=== PATIENT | female | born 1930 | race Caucasian/White ===

== ENCOUNTER → 2016-10-04 | Outpatient (CLI) | payer MEDICARE, OTHER ==
[~2016-10-04] MED LIST: ACID1TAB7 PO; AMLO2.5T PO; AMLO2.5T2 PO; ASPI-515 PO; CELE200C PO; CHOL500014 PO; CLIN300C93 PO; CYAN1TAB29 PO; DONE10TA7 PO; FERR325T10 PO; FERR325T20 PO; FURO20TA3 PO; GABA100C PO; GABA300C10 PO; GALA8TAB PO; HEPA5000 SQ; HYDR-3144 PO; HYDR1TAB16 PO; LEVO112T6 PO; LIDOCAINE PATCH TD; LISI-167 PO; LISI-170 PO; MELO-184 PO; MEMA1CAP3 PO; MORP15TA39 PO; OXYC10TA32 PO; OXYC1TAB9 PO; POTA10TA31 PO; URSO500T8 PO; VITA1TAB3 PO; potassium PO
== END | disposition home or self-care (01) ==
LOC: WOUND 13:12
PROVIDERS: ATTEND Physician Assistant
DX: L89.152 Pressure ulcer of sacral region, stage 2 (principal); F02.80 Dementia in other diseases classified elsewhere, unspecified severity, without behavioral disturbance, psychotic disturbance, mood disturbance, and anxiety; E03.9 Hypothyroidism, unspecified; F03.90 Unspecified dementia, unspecified severity, without behavioral disturbance, psychotic disturbance, mood disturbance, and anxiety; I10 Essential (primary) hypertension; Z68.25 Body mass index [BMI] 25.0-25.9, adult; Z87.891 Personal history of nicotine dependence; Z72.89 Other problems related to lifestyle; E44.1 Mild protein-calorie malnutrition
CPT/HCPCS: 97597; G0463; WOU0463

== ENCOUNTER → 2016-10-16 | Outpatient (CLI) | payer MEDICARE, OTHER | END | disposition home or self-care (01) | LOC: WOUND 13:00 | PROVIDERS: ATTEND Internal Medicine | DX: L89.152 Pressure ulcer of sacral region, stage 2 (principal); F02.80 Dementia in other diseases classified elsewhere, unspecified severity, without behavioral disturbance, psychotic disturbance, mood disturbance, and anxiety; E03.9 Hypothyroidism, unspecified; E44.1 Mild protein-calorie malnutrition; I10 Essential (primary) hypertension; Z68.25 Body mass index [BMI] 25.0-25.9, adult; Z87.891 Personal history of nicotine dependence; Z72.89 Other problems related to lifestyle | CPT/HCPCS: 97597 ==

== ENCOUNTER → 2016-10-30 | Outpatient (CLI) | payer MEDICARE, OTHER | END | disposition home or self-care (01) | LOC: WOUND 13:30 | PROVIDERS: ATTEND Internal Medicine | DX: L89.152 Pressure ulcer of sacral region, stage 2 (principal); F02.80 Dementia in other diseases classified elsewhere, unspecified severity, without behavioral disturbance, psychotic disturbance, mood disturbance, and anxiety; E03.9 Hypothyroidism, unspecified; I10 Essential (primary) hypertension; Z87.891 Personal history of nicotine dependence; Z72.89 Other problems related to lifestyle | CPT/HCPCS: G0463; WOU0463 ==

== ENCOUNTER → 2016-11-06 | Outpatient (CLI) | payer MEDICARE, OTHER | END | disposition home or self-care (01) | LOC: RAD 07:00 | PROVIDERS: ATTEND Internal Medicine | DX: K74.3 Primary biliary cirrhosis (principal); R16.1 Splenomegaly, not elsewhere classified; K80.20 Calculus of gallbladder without cholecystitis without obstruction; M40.294 Other kyphosis, thoracic region | CPT/HCPCS: 71020; 76700 ==

== ENCOUNTER → 2016-12-04 | Outpatient (CLI) | payer MEDICARE, OTHER ==
[~2016-12-04] MED LIST changes: +MORP-52 PO; -MORP15TA39 PO
== END | disposition home or self-care (01) ==
LOC: WOUND 13:30
PROVIDERS: ATTEND Internal Medicine
DX: L89.323 Pressure ulcer of left buttock, stage 3 (principal); L89.152 Pressure ulcer of sacral region, stage 2; F02.80 Dementia in other diseases classified elsewhere, unspecified severity, without behavioral disturbance, psychotic disturbance, mood disturbance, and anxiety; E03.9 Hypothyroidism, unspecified; I12.9 Hypertensive chronic kidney disease with stage 1 through stage 4 chronic kidney disease, or unspecified chronic kidney disease; N18.3 Chronic kidney disease, stage 3 (moderate); Z87.891 Personal history of nicotine dependence; Z72.89 Other problems related to lifestyle
CPT/HCPCS: 97597; G0463; WOU0463

== ENCOUNTER → 2016-12-12 | Outpatient (CLI) | payer MEDICARE, OTHER ==
[~2016-12-12] MED LIST changes: +OMNIPAQUE 350 MG/ML, 100ML BOTTLE ONE
== END | disposition home or self-care (01) ==
LOC: CFH 11:38
PROVIDERS: ATTEND Family Medicine
DX: K44.9 Diaphragmatic hernia without obstruction or gangrene (principal); R07.9 Chest pain, unspecified; M48.54XA Collapsed vertebra, not elsewhere classified, thoracic region, initial encounter for fracture; M48.56XA Collapsed vertebra, not elsewhere classified, lumbar region, initial encounter for fracture; K74.5 Biliary cirrhosis, unspecified; K76.0 Fatty (change of) liver, not elsewhere classified; R16.1 Splenomegaly, not elsewhere classified
CPT/HCPCS: 71260; 74177; Q9967

== ENCOUNTER → 2016-12-20 | Outpatient (CLI) | payer MEDICARE, OTHER ==
[~2016-12-20] MED LIST changes: -OMNIPAQUE 350 MG/ML, 100ML BOTTLE ONE
== END | disposition home or self-care (01) ==
LOC: WOUND 13:28
PROVIDERS: ATTEND Physician Assistant
DX: L89.152 Pressure ulcer of sacral region, stage 2 (principal); S81.812A Laceration without foreign body, left lower leg, initial encounter; F02.80 Dementia in other diseases classified elsewhere, unspecified severity, without behavioral disturbance, psychotic disturbance, mood disturbance, and anxiety; E03.9 Hypothyroidism, unspecified; I12.9 Hypertensive chronic kidney disease with stage 1 through stage 4 chronic kidney disease, or unspecified chronic kidney disease; N18.9 Chronic kidney disease, unspecified; Z87.891 Personal history of nicotine dependence; Z72.89 Other problems related to lifestyle; X58.XXXD Exposure to other specified factors, subsequent encounter
CPT/HCPCS: 97597; G0463; WOU0463

== ENCOUNTER 2016-12-31 14:54 | Emergency (ER) | payer MEDICARE, OTHER ==
[~2016-12-31] VITALS: Ht 147.3 cm; Wt 45.4 kg
[2016-12-31] MEDS ORDERED: MORPHINE SULFATE 4 MG/ML, 1ML ONE (15:29)
[2016-12-31] MEDS ORDERED: ONDANSETRON 2MG/ML, 2ML ONE (15:29)
[2016-12-31] MEDS ORDERED: MORPHINE SULFATE 4 MG/ML, 1ML IVPush PRN (15:30)
[2016-12-31] MEDS ORDERED: ONDANSETRON 2MG/ML, 2ML IVPush ONE (15:30)
[2016-12-31 16:00] LABS: HEMATOCRIT 25.5 % (34.6-47.8); HEMOGLOBIN 8.3 g/dL (11.7-16.4); WHITE BLOOD COUNT 3.9 x10^3/uL (3.4-10)
[2016-12-31 16:09] LABS: BLOOD UREA NITROGEN 24 mg/dL (7-18)
[2016-12-31 16:54] VITALS: BP 117/63
== END 2016-12-31 16:56 | disposition home or self-care (01) ==
LOC: ED 16:40
DX: S32.028A Other fracture of second lumbar vertebra, initial encounter for closed fracture (principal); S22.088A Other fracture of T11-T12 vertebra, initial encounter for closed fracture; I10 Essential (primary) hypertension; E03.9 Hypothyroidism, unspecified; M47.896 Other spondylosis, lumbar region; M51.36 Other intervertebral disc degeneration, lumbar region; W19.XXXA Unspecified fall, initial encounter; Y93.89 Activity, other specified; Y92.009 Unspecified place in unspecified non-institutional (private) residence as the place of occurrence of the external cause; Y99.9 Unspecified external cause status
CPT/HCPCS: 36415; 72110; 72220; 80048; 82040; 85025; 96374; 96375; 99285; J2405

== ENCOUNTER → 2017-08-12 | Outpatient (CLI) | payer MEDICARE, OTHER ==
[~2017-08-12] MED LIST changes: -CHOL500014 PO; +CHOL500045 PO; +CLIN300C8 PO; -CLIN300C93 PO; -FERR325T10 PO; +FERR325T17 PO; +FERR325T18 PO; -FERR325T20 PO; -HEPA5000 SQ; +HEPA50002 SQ; -HYDR-3144 PO; +HYDR-3245 PO; -MELO-184 PO; +MELO15TA24 PO; -OXYC10TA32 PO; +OXYC10TA47 PO
== END ==
LOC: CVU 14:24
PROVIDERS: ATTEND Family Medicine
DX: M25.551 Pain in right hip (principal); R60.9 Edema, unspecified
CPT/HCPCS: 93922

== ENCOUNTER 2017-09-16 09:28 | Emergency (ER) | payer MEDICARE, OTHER ==
[~2017-09-16] VITALS: Ht 149.9 cm; Wt 47.6 kg
[2017-09-16] MEDS ORDERED: OXYC1TAB7 PO (11:24)
[2017-09-16] MEDS ORDERED: CHOL2000 PO (11:28)
[2017-09-16] MEDS ORDERED: CALC400T5 PO (11:28)
[2017-09-16] MEDS ORDERED: MORPHINE SULFATE 4 MG/ML, 1ML ONE (12:25)
[2017-09-16] MEDS ORDERED: ONDANSETRON ODT 4 MG ONE (12:25)
[2017-09-16] MEDS ORDERED: ONDANSETRON ODT 4 MG PO ONE (12:30)
[2017-09-16] MEDS ORDERED: MORPHINE SULFATE 4 MG/ML, 1ML IVPush PRN (12:30)
[2017-09-16 14:11] VITALS: BP 112/63
== END 2017-09-16 15:11 | disposition home or self-care (01) ==
LOC: ED 14:59
DX: S20.00XA Contusion of breast, unspecified breast, initial encounter (principal); G89.29 Other chronic pain; M54.9 Dorsalgia, unspecified; I10 Essential (primary) hypertension; M81.0 Age-related osteoporosis without current pathological fracture; E03.9 Hypothyroidism, unspecified; F03.90 Unspecified dementia, unspecified severity, without behavioral disturbance, psychotic disturbance, mood disturbance, and anxiety; Z79.891 Long term (current) use of opiate analgesic; W19.XXXA Unspecified fall, initial encounter; Y93.89 Activity, other specified; Y99.8 Other external cause status; Y92.009 Unspecified place in unspecified non-institutional (private) residence as the place of occurrence of the external cause
CPT/HCPCS: 71046; 71120; 96374; 99284; Q0162

== ENCOUNTER → 2017-10-31 | Outpatient (CLI) | payer MEDICARE, OTHER ==
[~2017-10-31] MED LIST changes: +CALC400T5 PO; +CHOL2000 PO; +OXYC-432 PO; +OXYC1TAB7 PO; -OXYC1TAB9 PO; +SULF1TAB24 PO
== END | disposition home or self-care (01) ==
LOC: CFH 14:02
PROVIDERS: ATTEND Family Medicine
DX: Z13.820 Encounter for screening for osteoporosis (principal); M81.0 Age-related osteoporosis without current pathological fracture
CPT/HCPCS: 77080

== ENCOUNTER 2018-03-05 16:29 | Inpatient (IN) | payer MEDICARE, OTHER ==
[~2018-03-05] VITALS: Ht 147.3 cm; Wt 49.3 kg
[~2018-03-05 16:29] MED LIST changes: -AMLO2.5T PO; +AMLO2.5T3 PO
[2018-03-05] MEDS ORDERED: SODIUM CHLORIDE FLUSH 10ML SYR IVF ONE (19:00)
[2018-03-05 19:25] LABS: BASOPHILS # (AUTO) 0.03 x10^3/uL (0-0.1); BASOPHILS % (AUTO) 1 % (0-1); EOSINOPHILS # (AUTO) 0.26 x10^3/uL (0-0.4); EOSINOPHILS % (AUTO) 7 % (1-7); LYMPHOCYTES # (AUTO) 0.73 x10^3/uL (1-3.4); LYMPHOCYTES % (AUTO) 19 % (22-44); MD NO; MEAN CORPUSCULAR HEMOGLOBIN 34.3 pg (27.0-34.8); MEAN CORPUSCULAR HGB CONC 33.3 g/dL (32.4-35.8); MEAN CORPUSCULAR VOLUME 103.1 fL (80-100); MEAN PLATELET VOLUME 7.5 fL (7.4-10.4); MONOCYTES # (AUTO) 0.35 x10^3/uL (0.2-0.8); MONOCYTES % (AUTO) 9 % (2-9); NEUTROPHILS # (AUTO) 2.47 x10^3/uL (1.8-6.8); NEUTROPHILS % (AUTO) 64 % (42-75); PLATELET COUNT 116 x10^3/uL (130-400); RED BLOOD COUNT 3.15 x10^6/uL (3.82-5.3); RED CELL DISTRIBUTION WIDTH 16.9 % (9.6-15.2)
[2018-03-05 19:34] LABS: INTERNATIONAL NORMALIZED RATIO 1.11 (0.93-1.1); PROTHROMBIN TIME 11.4 Seconds (9.6-11.5)
[2018-03-05 19:36] LABS: ALBUMIN 3.2 g/dL (3.4-5.0); ANION GAP 5 mmol/L (5-15); CHLORIDE 113 mmol/L (98-107); CREATININE 1.46 mg/dL (0.55-1.02)
[2018-03-05] MEDS ORDERED: OXYcodone/APAP 10/325MG TABLET ONE (19:40)
[2018-03-05] MEDS ORDERED: OXYcodone/APAP 10/325MG TABLET PO ONE (20:00)
[2018-03-05] MEDS ORDERED: DOCUSATE 100 MG CAPSULE PO PRN (21:30)
[2018-03-05] MEDS ORDERED: ACETAMINOPHEN 325 MG TABLET PO PRN (21:30)
[2018-03-05] MEDS ORDERED: hydrALAzine 20 MG/ML, 1ML IVPush PRN (21:30)
[2018-03-05] MEDS ORDERED: ONDANSETRON ODT 4 MG PO PRN (21:30)
[2018-03-05] MEDS: DIPHENHYDRAMINE 25 MG CAPSULE PO PRN (21:34)
[2018-03-05] MEDS: HEPARIN 5,000 UNITS/ML, 1ML SQ SCH (21:34)
[2018-03-05 21:35] VITALS: BP 183/93
[2018-03-05] MEDS ORDERED: SODIUM CHLORIDE 0.9% 1,000 ML IV SCH (22:30)
[2018-03-06 03:50] VITALS: BP 133/71
[2018-03-06 05:08] LABS: ANION GAP 9 mmol/L (5-15); CALCIUM 8.2 mg/dL (8.5-10.1); CHLORIDE 117 mmol/L (98-107)
[2018-03-06 05:11] LABS: CREATININE 1.28 mg/dL (0.55-1.02)
[2018-03-06] MEDS: HEPARIN 5,000 UNITS/ML, 1ML SQ SCH ×3 (05:25→20:15)
[2018-03-06 08:22] VITALS: BP 129/71
[2018-03-06] MEDS: OXYcodone/APAP 5/325MG TABLET PO PRN ×2 (08:58→15:31)
[2018-03-06] MEDS: DONEPEZIL 10 MG TABLET PO SCH (08:59)
[2018-03-06] MEDS: CALCIUM CARBONATE 500 MG TAB.CHEW PO SCH ×2 (08:59→20:15)
[2018-03-06] MEDS: CHOLECALCIFEROL 5,000u TAB PO SCH (08:59)
[2018-03-06] MEDS: LISINOPRIL 20 MG TABLET PO SCH (08:59)
[2018-03-06] MEDS: LEVOTHYROXINE 88 MCG TABLET PO SCH (08:59)
[2018-03-06] MEDS: FUROSEMIDE 20 MG TABLET PO SCH (08:59)
[2018-03-06 11:45] LABS: FREE T4 (FREE THYROXINE) 3.19 ng/dL (0.76-1.46)
[2018-03-06 15:40] VITALS: BP 149/88
[2018-03-06] MEDS ORDERED: GABA-826 PO ×2 (16:37→16:45)
[2018-03-06 19:03] VITALS: BP 158/84
[2018-03-06] MEDS: GABAPENTIN 100 MG CAPSULE PO SCH (20:15)
[2018-03-06] MEDS: DIPHENHYDRAMINE 25 MG CAPSULE PO PRN (20:15)
[2018-03-07 01:03] VITALS: BP 155/75
[2018-03-07] MEDS: HEPARIN 5,000 UNITS/ML, 1ML SQ SCH ×3 (05:32→21:37)
[2018-03-07] MEDS: OXYcodone/APAP 5/325MG TABLET PO PRN ×2 (05:32→21:37)
[2018-03-07 08:30] VITALS: BP 136/78
[2018-03-07] MEDS: DONEPEZIL 10 MG TABLET PO SCH (10:12)
[2018-03-07] MEDS: CALCIUM CARBONATE 500 MG TAB.CHEW PO SCH ×2 (10:13→21:37)
[2018-03-07] MEDS: CHOLECALCIFEROL 5,000u TAB PO SCH (10:13)
[2018-03-07] MEDS: LEVOTHYROXINE 88 MCG TABLET PO SCH (10:13)
[2018-03-07] MEDS: GABAPENTIN 100 MG CAPSULE PO SCH ×3 (10:13→21:37)
[2018-03-07] MEDS: FUROSEMIDE 20 MG TABLET PO SCH (10:13)
[2018-03-07] MEDS: LISINOPRIL 20 MG TABLET PO SCH (10:13)
[2018-03-07 13:21] VITALS: BP 134/65
[2018-03-07 13:59] LABS: MICROSCOPIC AUTO
[2018-03-07 14:10] LABS: CULTURE INDICATED? YES
[2018-03-07 19:15] VITALS: BP 158/84
[2018-03-08 01:07] VITALS: BP 160/81
[2018-03-08] MEDS: LEVOTHYROXINE 88 MCG TABLET PO SCH (05:27)
[2018-03-08] MEDS: HEPARIN 5,000 UNITS/ML, 1ML SQ SCH ×3 (05:27→21:26)
[2018-03-08 06:46] VITALS: BP 165/78
[2018-03-08] MEDS: CEFTRIAXONE PMX 1GM/50ML 50 ML IV SCH (07:29)
[2018-03-08] MEDS: LISINOPRIL 20 MG TABLET PO SCH (07:42)
[2018-03-08] MEDS: DONEPEZIL 10 MG TABLET PO SCH (07:42)
[2018-03-08] MEDS: CHOLECALCIFEROL 5,000u TAB PO SCH (07:42)
[2018-03-08] MEDS: GABAPENTIN 100 MG CAPSULE PO SCH ×3 (07:42→21:26)
[2018-03-08] MEDS: FUROSEMIDE 20 MG TABLET PO SCH (07:42)
[2018-03-08] MEDS: CALCIUM CARBONATE 500 MG TAB.CHEW PO SCH ×2 (07:43→21:00)
[2018-03-08] MEDS ORDERED: CEFD300C37 PO (08:14)
[2018-03-08 12:50] VITALS: BP 116/78
[2018-03-08 19:22] VITALS: BP 155/83
[2018-03-08] MEDS: OXYcodone/APAP 5/325MG TABLET PO PRN (21:35)
[2018-03-08] MEDS: DIPHENHYDRAMINE 25 MG CAPSULE PO PRN (21:35)
[2018-03-09 01:35] VITALS: BP 159/83
[2018-03-09] MEDS: HEPARIN 5,000 UNITS/ML, 1ML SQ SCH ×2 (05:00→13:42)
[2018-03-09 06:35] VITALS: BP 150/82
[2018-03-09] MEDS: CEFTRIAXONE PMX 1GM/50ML 50 ML IV SCH (07:26)
[2018-03-09] MEDS: DONEPEZIL 10 MG TABLET PO SCH (07:26)
[2018-03-09] MEDS: LISINOPRIL 20 MG TABLET PO SCH (07:27)
[2018-03-09] MEDS: GABAPENTIN 100 MG CAPSULE PO SCH ×2 (07:27→16:38)
[2018-03-09] MEDS: CHOLECALCIFEROL 5,000u TAB PO SCH (07:27)
[2018-03-09] MEDS: CALCIUM CARBONATE 500 MG TAB.CHEW PO SCH (07:27)
[2018-03-09] MEDS: FUROSEMIDE 20 MG TABLET PO SCH (07:27)
[2018-03-09] MEDS: LEVOTHYROXINE 88 MCG TABLET PO SCH (07:29)
[2018-03-09] MEDS: OXYcodone/APAP 5/325MG TABLET PO PRN ×2 (07:45→16:37)
[2018-03-09 12:10] VITALS: BP 133/81
== END 2018-03-09 18:09 | DRG 542 ==
LOC: ED 17:23 → EDIP 20:20 → 3NE 20:58
PROVIDERS: ADMIT Hospitalist; ATTEND Hospitalist
DX: M80.071A Age-related osteoporosis with current pathological fracture, right ankle and foot, initial encounter for fracture (principal); N17.0 Acute kidney failure with tubular necrosis; E44.0 Moderate protein-calorie malnutrition; N39.0 Urinary tract infection, site not specified; W18.30XA Fall on same level, unspecified, initial encounter; N18.9 Chronic kidney disease, unspecified; I12.9 Hypertensive chronic kidney disease with stage 1 through stage 4 chronic kidney disease, or unspecified chronic kidney disease; D69.6 Thrombocytopenia, unspecified; D69.2 Other nonthrombocytopenic purpura; D53.9 Nutritional anemia, unspecified; E03.9 Hypothyroidism, unspecified; F03.90 Unspecified dementia, unspecified severity, without behavioral disturbance, psychotic disturbance, mood disturbance, and anxiety; F43.9 Reaction to severe stress, unspecified; G89.11 Acute pain due to trauma; G89.29 Other chronic pain; Z66 Do not resuscitate; Z96.641 Presence of right artificial hip joint; W18.39XA Other fall on same level, initial encounter; Y93.89 Activity, other specified; Y92.89 Other specified places as the place of occurrence of the external cause; Y99.8 Other external cause status; Z88.8 Allergy status to other drugs, medicaments and biological substances; B96.20 Unspecified Escherichia coli [E. coli] as the cause of diseases classified elsewhere; Z68.22 Body mass index [BMI] 22.0-22.9, adult; Z98.49 Cataract extraction status, unspecified eye; Z98.1 Arthrodesis status
CPT/HCPCS: 36415; 80048; 81001; 82040; 82306; 82607; 82728; 83540; 83550; 84439; 84443; 84466; 84481; 85025; 85610; 87077; 87086; 87186; 99285; G0378; J0696; J1644; J0360; J7030; Q0163

== ENCOUNTER 2018-10-27 09:48 | Inpatient (IN) | payer MEDICARE, OTHER ==
[~2018-10-27] VITALS: Ht 124.5 cm; Wt 52.9 kg
[~2018-10-27 09:48] MED LIST changes: -AMLO2.5T3 PO; +AMLO2.5T5 PO; +AMOX1TAB64 PO; +CEFD300C37 PO; +GABA-826 PO; +LEVO50TA PO; +METR500T PO; +PANT40TA5 PO
[2018-10-27] MEDS ORDERED: PANTOPRAZOLE 80 MG in SODIUM CHLORIDE 0.9% 100 ML IV SCH ×2 (09:55→14:30)
[2018-10-27] MEDS ORDERED: PANTOPRAZOLE 80 MG in SODIUM CHLORIDE 0.9% 50 ML IVPB ONE (09:55)
--- NOTE | 2018-10-27 09:55 | NUR ---
PATIENT ARRIVES FROM HOME WITH MAURILIO. SHE IS ON NON REBREATHER MASK 15 LITERS AND SAT'S 98% BUT WHEN MOVED OR REMOVED BRIEFLY HER SAT'S DROP QUICKLY AND SHE IS SLOW TO RETURN. SHE HAS RALES/COARSE LUNG SOUNDS. SHE IS SCREAMING IN PAIN. [facility] GAVE 50 MCG FENTANYL AND 4 MG ZOFRAN. SHE WAS HOME AND WITH DAUGHTER WHEN SHE BEGAN HAVING COFFEE GROUND EMESIS AND DIARREA. SHE IS COVERED IN IT HEAD TO TOE. GOT HELP AND GOT HER CLOTHES OFF, GOWNED, CLEANED UP, AND ON NEW SHEETS. PATIENT IN BED, RAILS UP. SHE HAS BEEN HOSPITALIZED FOR GI BLEED THIS PAST MAY ICU. SHE IS NOT ON BLOOD THINNERS.
[2018-10-27] MEDS ORDERED: SODIUM CHLORIDE 0.9% 1,000ML IVBOLUS ONE (10:00)
[2018-10-27] MEDS ORDERED: ACETAMINOPHEN 325 MG TABLET PO ONE (10:00)
--- NOTE | 2018-10-27 10:16 | NUR ---
REPORTED TO VANESSA, RN AND PATIENT TAKEN TO ROOM 37
--- NOTE | 2018-10-27 10:26 | NUR ---
[facility] BEDSIDE HAND-OFF REPORT RECEIVED FROM CUCA ISLAS. PATIENT MOVED TO ROOM 37. ASSUMING CARE OF PATIENT. PATIENT ON CONTINUOUS SPO2, CARDIAC MONITORS. AUTOMATIC BP CUFF APPLIED AND SET TO Q30 MINS. VS STABLE AT THIS TIME.
[2018-10-27 10:28] LABS: BASOPHILS # (AUTO) 0.07 x10^3/uL (0-0.1); BASOPHILS % (AUTO) 1 % (0-1); EOSINOPHILS # (AUTO) 0.04 x10^3/uL (0-0.4); EOSINOPHILS % (AUTO) 1 % (1-7); LYMPHOCYTES # (AUTO) 0.29 x10^3/uL (1-3.4); LYMPHOCYTES % (AUTO) 4 % (22-44); MD NO; MEAN CORPUSCULAR HEMOGLOBIN 34.4 pg (27.0-34.8); MEAN CORPUSCULAR HGB CONC 32.7 g/dL (32.4-35.8); MEAN CORPUSCULAR VOLUME 105.3 fL (80-100); MEAN PLATELET VOLUME 7.5 fL (7.4-10.4); MONOCYTES # (AUTO) 0.41 x10^3/uL (0.2-0.8); MONOCYTES % (AUTO) 6 % (2-9); NEUTROPHILS # (AUTO) 5.83 x10^3/uL (1.8-6.8); NEUTROPHILS % (AUTO) 88 % (42-75); PLATELET COUNT 112 x10^3/uL (130-400); RED BLOOD COUNT 3.31 x10^6/uL (3.82-5.3); RED CELL DISTRIBUTION WIDTH 15.4 % (9.6-15.2)
[2018-10-27] MEDS ORDERED: PLEASE ENTER HEIGHT AND WEIGHT MC SCH (10:30)
[2018-10-27 10:38] LABS: INTERNATIONAL NORMALIZED RATIO 1.08 (0.93-1.1); PROTHROMBIN TIME 11.3 Seconds (9.6-11.5)
[2018-10-27 10:40] LABS: ALANINE AMINOTRANSFERASE 40 U/L (12-78); ALBUMIN 3.1 g/dL (3.4-5.0); ANION GAP 10 mmol/L (5-15); CHLORIDE 109 mmol/L (98-107); CREATININE 1.86 mg/dL (0.55-1.02)
[2018-10-27 10:42] LABS: ALKALINE PHOSPHATASE 430 U/L (45-117); BILIRUBIN,TOTAL 0.7 mg/dL (0.2-1.0); TOTAL PROTEIN 8.1 g/dL (6.4-8.2)
[2018-10-27] MEDS ORDERED: ACETAMINOPHEN 325 MG TABLET ONE (11:00)
[2018-10-27] MEDS ORDERED: CEFTRIAXONE PMX 1GM/50ML 50 ML ONE (11:50)
[2018-10-27] MEDS ORDERED: CEFTRIAXONE PMX 1GM/50ML 50 ML IV ONE (12:00)
--- NOTE | 2018-10-27 12:27 | NUR ---
HAIR HELTON COLLECTED AND WALKED TO LAB.
[2018-10-27] MEDS ORDERED: PANT40TA5 PO (12:30)
[2018-10-27] MEDS ORDERED: GABA300C10 PO (12:32)
[2018-10-27] MEDS ORDERED: FERR-46 PO (12:33)
[2018-10-27 13:01] LABS: MICROSCOPIC INDICATED
[2018-10-27 13:06] LABS: CULTURE INDICATED? YES
[2018-10-27] MEDS ORDERED: VANCOMYCIN PER PHARMACY MC ONE (13:30)
[2018-10-27] MEDS ORDERED: VANCOMYCIN PMX 1GM/200ML 200 ML IV ONE (13:30)
[2018-10-27] MEDS ORDERED: AZITHROMYCIN 500 MG in SODIUM CHLORIDE 0.9% 250 ML IV ONE (13:30)
[2018-10-27] MEDS ORDERED: ONDANSETRON 2MG/ML, 2ML IVPush PRN (14:30)
[2018-10-27] MEDS ORDERED: CEFTRIAXONE PMX 1GM/50ML 50 ML IV SCH (14:30)
[2018-10-27] MEDS ORDERED: ACETAMINOPHEN 325 MG TABLET PO PRN (14:30)
[2018-10-27] MEDS ORDERED: SODIUM CHLORIDE 0.9% 500 ML IV SCH (14:30)
[2018-10-27] MEDS ORDERED: LABETALOL 5MG/ML, 20ML IVPush PRN (14:30)
[2018-10-27] MEDS ORDERED: HEPARIN 5,000 UNITS/ML, 1ML SQ SCH (14:30)
[2018-10-27] MEDS ORDERED: OCTREOTIDE 500 MCG in SODIUM CHLORIDE 0.9% 249 ML IV SCH (14:30)
[2018-10-27] MEDS: CEFTRIAXONE PMX 1GM/50ML 50 ML IV SCH (14:35)
[2018-10-27] MEDS ORDERED: HEPARIN 5,000 UNITS/ML, 1ML ONE (15:19)
--- NOTE | 2018-10-27 15:54 | NUR ---
LAB AND IMPROVEMENT LEADER AT BEDSIDE. PT UPDATED ON POC. IV ANTIBIOTICS INFUSING.
[2018-10-27] MEDS: DOXYCYCLINE 100 MG in DEXTROSE 5% 250 ML IV SCH (16:52)
[2018-10-27] MEDS ORDERED: GABAPENTIN 300 MG CAPSULE ONE (17:16)
[2018-10-27] MEDS: GABAPENTIN 300 MG CAPSULE PO SCH ×2 (17:18→21:52)
--- NOTE | 2018-10-27 18:51 | NUR ---
Pt report from chuckie. This rn to assume care. Sleeping comfortably on hospital bed. Call light wtihin reach. Iv infusing appropriately.
[2018-10-27] MEDS: SODIUM CHLORIDE 0.9% 1,000 ML IV SCH (19:27)
[2018-10-27] MEDS: DONEPEZIL 10 MG TABLET PO SCH (21:52)
[2018-10-27] MEDS: HYDROcodone/APAP 5/325 TABLET PO PRN (21:52)
[2018-10-27] MEDS: CALCIUM CARBONATE 500 MG TAB.CHEW PO SCH (21:53)
[2018-10-27] MEDS: PANTOPRAZOLE 80 MG in SODIUM CHLORIDE 0.9% 100 ML IV SCH (21:54)
[2018-10-27 22:21] VITALS: BP 144/77
[2018-10-27] MEDS: morphine SULFATE 10 MG/ML, 1ML IVPush PRN (23:38)
[2018-10-28 03:38] VITALS: BP 138/72
[2018-10-28] MEDS: morphine SULFATE 10 MG/ML, 1ML IVPush PRN (03:54)
[2018-10-28] MEDS: SODIUM CHLORIDE 0.9% 1,000 ML IV SCH ×2 (03:54→23:52)
[2018-10-28] MEDS: HYDROcodone/APAP 5/325 TABLET PO PRN (05:14)
[2018-10-28] MEDS: DOXYCYCLINE 100 MG in DEXTROSE 5% 250 ML IV SCH ×2 (05:14→17:51)
[2018-10-28] MEDS: OCTREOTIDE 500 MCG in SODIUM CHLORIDE 0.9% 249 ML IV SCH ×2 (05:43→23:53)
[2018-10-28] MEDS ORDERED: LEVOTHYROXINE 50 MCG TABLET PO SCH (06:00)
[2018-10-28 06:15] LABS: CHLORIDE 115 mmol/L (98-107)
[2018-10-28 06:24] LABS: ALANINE AMINOTRANSFERASE 28 U/L (12-78); ALBUMIN 2.2 g/dL (3.4-5.0); ALKALINE PHOSPHATASE 277 U/L (45-117); ANION GAP 9 mmol/L (5-15); BILIRUBIN,TOTAL 0.8 mg/dL (0.2-1.0); CALCIUM 7.7 mg/dL (8.5-10.1); CREATININE 1.36 mg/dL (0.55-1.02); TOTAL PROTEIN 6.1 g/dL (6.4-8.2)
[2018-10-28 06:34] LABS: MEAN CORPUSCULAR HEMOGLOBIN 34.1 pg (27.0-34.8); MEAN CORPUSCULAR HGB CONC 32.4 g/dL (32.4-35.8); MEAN CORPUSCULAR VOLUME 105.3 fL (80-100); MEAN PLATELET VOLUME 8.1 fL (7.4-10.4); PLATELET COUNT 72 x10^3/uL (130-400); RED BLOOD COUNT 2.82 x10^6/uL (3.82-5.3); RED CELL DISTRIBUTION WIDTH 15.6 % (9.6-15.2)
[2018-10-28 06:36] LABS: BASOPHILS # (AUTO) 0.01 x10^3/uL (0-0.1); BASOPHILS % (AUTO) 0 % (0-1); EOSINOPHILS # (AUTO) 0.08 x10^3/uL (0-0.4); EOSINOPHILS % (AUTO) 1 % (1-7); LYMPHOCYTES # (AUTO) 0.78 x10^3/uL (1-3.4); LYMPHOCYTES % (AUTO) 13 % (22-44); MD SCAN; MONOCYTES # (AUTO) 0.51 x10^3/uL (0.2-0.8); MONOCYTES % (AUTO) 9 % (2-9); NEUTROPHILS # (AUTO) 4.56 x10^3/uL (1.8-6.8); NEUTROPHILS % (AUTO) 77 % (42-75)
[2018-10-28] MEDS: FERROUS SULFATE 325 MG TABLET PO SCH (07:54)
[2018-10-28] MEDS: CALCIUM CARBONATE 500 MG TAB.CHEW PO SCH ×2 (07:54→21:07)
[2018-10-28] MEDS: GABAPENTIN 300 MG CAPSULE PO SCH ×3 (07:54→21:06)
[2018-10-28] MEDS: PANTOPRAZOLE 80 MG in SODIUM CHLORIDE 0.9% 100 ML IV SCH ×2 (07:57→17:51)
[2018-10-28 08:00] VITALS: BP 130/68
[2018-10-28] MEDS: LIDODERM 5% PATCH TD PRN (09:20)
[2018-10-28 10:23] LABS: FREE T4 (FREE THYROXINE) 2.65 ng/dL (0.76-1.46)
[2018-10-28] MEDS ORDERED: POTA10TA11 PO (11:49)
[2018-10-28] MEDS: OXYcodone/APAP 5/325MG TABLET PO PRN ×2 (12:18→21:06)
[2018-10-28] MEDS ORDERED: FENTANYL PF 100 MCG/2ML IV PRN (13:00)
[2018-10-28] MEDS ORDERED: ONDANSETRON 2MG/ML, 2ML IV PRN (13:00)
[2018-10-28] MEDS ORDERED: PROPOFOL 10 MG/ML, 20ML ONE (13:50)
[2018-10-28 15:02] VITALS: BP 111/63
[2018-10-28] MEDS: CEFTRIAXONE PMX 1GM/50ML 50 ML IV SCH (15:13)
[2018-10-28] MEDS: CYCLOBENZAPRINE 10 MG TABLET PO PRN (15:14)
[2018-10-28] MEDS: DONEPEZIL 10 MG TABLET PO SCH (21:06)
[2018-10-28 21:25] VITALS: BP 139/76
[2018-10-29] MEDS: PANTOPRAZOLE 80 MG in SODIUM CHLORIDE 0.9% 100 ML IV SCH (03:39)
[2018-10-29 03:59] VITALS: BP 137/76
[2018-10-29] MEDS: LEVOTHYROXINE 25 MCG TABLET PO SCH (05:54)
[2018-10-29] MEDS: OXYcodone/APAP 5/325MG TABLET PO PRN ×3 (05:54→20:14)
[2018-10-29] MEDS: DOXYCYCLINE 100 MG in DEXTROSE 5% 250 ML IV SCH ×2 (05:54→17:45)
[2018-10-29 06:51] LABS: CHLORIDE 116 mmol/L (98-107)
[2018-10-29 07:00] LABS: ALANINE AMINOTRANSFERASE 26 U/L (12-78); ALBUMIN 2.3 g/dL (3.4-5.0); ALKALINE PHOSPHATASE 267 U/L (45-117); ANION GAP 7 mmol/L (5-15); BASOPHILS # (AUTO) 0.01 x10^3/uL (0-0.1); BASOPHILS % (AUTO) 0 % (0-1); BILIRUBIN,TOTAL 0.5 mg/dL (0.2-1.0); CALCIUM 7.6 mg/dL (8.5-10.1); CREATININE 1.25 mg/dL (0.55-1.02); EOSINOPHILS % (AUTO) 4 % (1-7); LYMPHOCYTES # (AUTO) 0.56 x10^3/uL (1-3.4); LYMPHOCYTES % (AUTO) 11 % (22-44); MD SCAN; MEAN CORPUSCULAR HEMOGLOBIN 34.6 pg (27.0-34.8); MEAN CORPUSCULAR HGB CONC 32.7 g/dL (32.4-35.8); MEAN CORPUSCULAR VOLUME 105.8 fL (80-100); MEAN PLATELET VOLUME 7.5 fL (7.4-10.4); MONOCYTES # (AUTO) 0.41 x10^3/uL (0.2-0.8); MONOCYTES % (AUTO) 8 % (2-9); NEUTROPHILS # (AUTO) 4.13 x10^3/uL (1.8-6.8); NEUTROPHILS % (AUTO) 78 % (42-75); PLATELET COUNT 96 x10^3/uL (130-400); RED BLOOD COUNT 2.81 x10^6/uL (3.82-5.3); RED CELL DISTRIBUTION WIDTH 15.5 % (9.6-15.2); TOTAL PROTEIN 6.4 g/dL (6.4-8.2)
[2018-10-29 07:22] VITALS: BP 132/71
[2018-10-29] MEDS: CALCIUM CARBONATE 500 MG TAB.CHEW PO SCH ×2 (09:18→20:07)
[2018-10-29] MEDS: FERROUS SULFATE 325 MG TABLET PO SCH (09:18)
[2018-10-29] MEDS: GABAPENTIN 300 MG CAPSULE PO SCH ×3 (09:18→20:07)
[2018-10-29] MEDS: PANTOPROZOLE 40MG TABLET PO SCH (11:06)
[2018-10-29] MEDS: LIDODERM 5% PATCH TD PRN (11:41)
[2018-10-29 13:44] VITALS: BP 125/75
[2018-10-29] MEDS: GUAIFENESIN 200 MG TABLET PO SCH ×2 (15:40→20:07)
[2018-10-29] MEDS: CEFTRIAXONE PMX 1GM/50ML 50 ML IV SCH (15:40)
[2018-10-29] MEDS: DONEPEZIL 10 MG TABLET PO SCH (20:07)
[2018-10-29 21:09] VITALS: BP 120/76
[2018-10-30 03:55] VITALS: BP 135/81
[2018-10-30] MEDS: OXYcodone/APAP 5/325MG TABLET PO PRN ×3 (04:32→21:09)
[2018-10-30] MEDS: GUAIFENESIN 200 MG TABLET PO SCH ×4 (05:39→21:06)
[2018-10-30] MEDS: LEVOTHYROXINE 25 MCG TABLET PO SCH (05:39)
[2018-10-30] MEDS: PANTOPROZOLE 40MG TABLET PO SCH (05:39)
[2018-10-30] MEDS: DOXYCYCLINE 100 MG in DEXTROSE 5% 250 ML IV SCH (05:40)
[2018-10-30 06:20] LABS: MEAN CORPUSCULAR HEMOGLOBIN 35.1 pg (27.0-34.8); MEAN CORPUSCULAR HGB CONC 32.9 g/dL (32.4-35.8); MEAN CORPUSCULAR VOLUME 106.7 fL (80-100); MEAN PLATELET VOLUME 7.9 fL (7.4-10.4); PLATELET COUNT 95 x10^3/uL (130-400); RED BLOOD COUNT 2.77 x10^6/uL (3.82-5.3); RED CELL DISTRIBUTION WIDTH 15.2 % (9.6-15.2)
[2018-10-30 06:23] LABS: ALBUMIN 2.1 g/dL (3.4-5.0); ANION GAP 5 mmol/L (5-15); CALCIUM 7.7 mg/dL (8.5-10.1); CHLORIDE 117 mmol/L (98-107)
[2018-10-30 06:27] LABS: ALANINE AMINOTRANSFERASE 23 U/L (12-78); ALKALINE PHOSPHATASE 254 U/L (45-117); BILIRUBIN,TOTAL 0.6 mg/dL (0.2-1.0); TOTAL PROTEIN 6.3 g/dL (6.4-8.2)
[2018-10-30 06:40] LABS: BASOPHILS # (AUTO) 0.01 x10^3/uL (0-0.1); BASOPHILS % (AUTO) 0 % (0-1); EOSINOPHILS # (AUTO) 0.22 x10^3/uL (0-0.4); EOSINOPHILS % (AUTO) 5 % (1-7); LYMPHOCYTES % (AUTO) 15 % (22-44); MD SCAN; MONOCYTES # (AUTO) 0.37 x10^3/uL (0.2-0.8); MONOCYTES % (AUTO) 9 % (2-9); NEUTROPHILS # (AUTO) 2.95 x10^3/uL (1.8-6.8); NEUTROPHILS % (AUTO) 71 % (42-75)
[2018-10-30 07:15] VITALS: BP 112/67
[2018-10-30] MEDS: DOXYCYCLINE 100MG TABLET PO SCH ×2 (09:37→21:06)
[2018-10-30] MEDS: FERROUS SULFATE 325 MG TABLET PO SCH (09:37)
[2018-10-30] MEDS: CALCIUM CARBONATE 500 MG TAB.CHEW PO SCH ×2 (09:37→21:05)
[2018-10-30] MEDS: GABAPENTIN 300 MG CAPSULE PO SCH ×3 (09:37→21:05)
[2018-10-30] MEDS: AMOXICILLIN/CLAV 875-125MG TABLET PO SCH ×2 (09:37→21:06)
[2018-10-30 12:41] VITALS: BP 143/82
[2018-10-30 17:20] LABS: CLOSTRIDIUM DIFFICILE ANTIGEN NEGATIVE; CLOSTRIDIUM DIFFICILE TOXIN NEGATIVE (Negative)
[2018-10-30 19:26] VITALS: BP 130/66
[2018-10-30] MEDS: DONEPEZIL 10 MG TABLET PO SCH (21:06)
[2018-10-31 00:22] VITALS: BP 130/75
[2018-10-31] MEDS: PANTOPROZOLE 40MG TABLET PO SCH (05:13)
[2018-10-31] MEDS: GUAIFENESIN 200 MG TABLET PO SCH ×4 (05:13→20:14)
[2018-10-31] MEDS: LEVOTHYROXINE 25 MCG TABLET PO SCH (05:13)
[2018-10-31 05:57] LABS: BASOPHILS # (AUTO) 0.01 x10^3/uL (0-0.1); BASOPHILS % (AUTO) 0 % (0-1); EOSINOPHILS # (AUTO) 0.25 x10^3/uL (0-0.4); EOSINOPHILS % (AUTO) 6 % (1-7); LYMPHOCYTES # (AUTO) 0.57 x10^3/uL (1-3.4); LYMPHOCYTES % (AUTO) 14 % (22-44); MD NO; MEAN CORPUSCULAR HEMOGLOBIN 34.6 pg (27.0-34.8); MEAN CORPUSCULAR HGB CONC 32.5 g/dL (32.4-35.8); MEAN CORPUSCULAR VOLUME 106.6 fL (80-100); MEAN PLATELET VOLUME 7.7 fL (7.4-10.4); MONOCYTES # (AUTO) 0.41 x10^3/uL (0.2-0.8); MONOCYTES % (AUTO) 10 % (2-9); NEUTROPHILS # (AUTO) 2.97 x10^3/uL (1.8-6.8); NEUTROPHILS % (AUTO) 71 % (42-75); PLATELET COUNT 101 x10^3/uL (130-400); RED BLOOD COUNT 3.06 x10^6/uL (3.82-5.3); RED CELL DISTRIBUTION WIDTH 14.6 % (9.6-15.2)
[2018-10-31 06:04] LABS: ALANINE AMINOTRANSFERASE 24 U/L (12-78); ALBUMIN 2.3 g/dL (3.4-5.0); ANION GAP 4 mmol/L (5-15); CHLORIDE 118 mmol/L (98-107); CREATININE 1.02 mg/dL (0.55-1.02)
[2018-10-31 06:06] LABS: ALKALINE PHOSPHATASE 327 U/L (45-117); BILIRUBIN,TOTAL 0.5 mg/dL (0.2-1.0); TOTAL PROTEIN 6.5 g/dL (6.4-8.2)
[2018-10-31] MEDS: HEPARIN 5,000 UNITS/ML, 1ML SQ SCH ×3 (08:01→23:21)
[2018-10-31] MEDS: DOXYCYCLINE 100MG TABLET PO SCH ×2 (08:01→20:14)
[2018-10-31] MEDS: LOPERAMIDE 2 MG CAPSULE PO PRN ×2 (08:01→17:38)
[2018-10-31] MEDS: AMOXICILLIN/CLAV 875-125MG TABLET PO SCH ×2 (08:01→20:14)
[2018-10-31] MEDS: GABAPENTIN 300 MG CAPSULE PO SCH ×3 (08:01→20:14)
[2018-10-31] MEDS: FERROUS SULFATE 325 MG TABLET PO SCH (08:01)
[2018-10-31] MEDS: CALCIUM CARBONATE 500 MG TAB.CHEW PO SCH ×2 (08:01→20:14)
[2018-10-31] MEDS: SODIUM CHLORIDE 0.45% 1,000 ML IV SCH ×2 (08:09→23:00)
[2018-10-31 08:10] VITALS: BP 154/83
[2018-10-31] MEDS: OXYcodone/APAP 5/325MG TABLET PO PRN ×3 (08:10→21:38)
[2018-10-31 12:28] VITALS: BP 133/76
[2018-10-31 19:06] VITALS: BP 158/77
[2018-10-31] MEDS: DONEPEZIL 10 MG TABLET PO SCH (20:14)
[2018-10-31] MEDS: CYCLOBENZAPRINE 10 MG TABLET PO PRN (20:14)
[2018-11-01 01:10] VITALS: BP 129/78
[2018-11-01] MEDS: LOPERAMIDE 2 MG CAPSULE PO PRN (04:41)
[2018-11-01 05:26] LABS: ANION GAP 4 mmol/L (5-15); CHLORIDE 116 mmol/L (98-107)
[2018-11-01 05:27] LABS: CREATININE 0.99 mg/dL (0.55-1.02)
[2018-11-01] MEDS: PANTOPROZOLE 40MG TABLET PO SCH (05:45)
[2018-11-01] MEDS: LEVOTHYROXINE 25 MCG TABLET PO SCH (05:45)
[2018-11-01] MEDS: GUAIFENESIN 200 MG TABLET PO SCH ×4 (05:45→21:42)
[2018-11-01 07:03] VITALS: BP 136/71
[2018-11-01] MEDS: DOXYCYCLINE 100MG TABLET PO SCH ×2 (08:50→21:42)
[2018-11-01] MEDS: FERROUS SULFATE 325 MG TABLET PO SCH (08:50)
[2018-11-01] MEDS: HEPARIN 5,000 UNITS/ML, 1ML SQ SCH ×2 (08:50→16:05)
[2018-11-01] MEDS: CALCIUM CARBONATE 500 MG TAB.CHEW PO SCH ×2 (08:50→21:42)
[2018-11-01] MEDS: AMOXICILLIN/CLAV 875-125MG TABLET PO SCH ×2 (08:50→21:42)
[2018-11-01] MEDS: GABAPENTIN 300 MG CAPSULE PO SCH ×3 (08:50→21:42)
[2018-11-01] MEDS: OXYcodone/APAP 5/325MG TABLET PO PRN ×3 (09:01→22:10)
[2018-11-01 14:00] VITALS: BP 134/85
[2018-11-01 14:18] VITALS: BP 132/73
[2018-11-01 19:56] VITALS: BP 134/78
[2018-11-01] MEDS: DONEPEZIL 10 MG TABLET PO SCH (21:42)
[2018-11-02] MEDS: HEPARIN 5,000 UNITS/ML, 1ML SQ SCH ×2 (00:09→08:39)
[2018-11-02 02:55] VITALS: BP 156/77
[2018-11-02] MEDS: GUAIFENESIN 200 MG TABLET PO SCH ×2 (05:48→12:14)
[2018-11-02] MEDS: LEVOTHYROXINE 25 MCG TABLET PO SCH (05:48)
[2018-11-02] MEDS: PANTOPROZOLE 40MG TABLET PO SCH (05:48)
[2018-11-02] MEDS: OXYcodone/APAP 5/325MG TABLET PO PRN (06:14)
[2018-11-02 06:55] VITALS: BP 121/63
[2018-11-02] MEDS: GABAPENTIN 300 MG CAPSULE PO SCH (08:39)
[2018-11-02] MEDS: AMOXICILLIN/CLAV 875-125MG TABLET PO SCH (08:39)
[2018-11-02] MEDS: CALCIUM CARBONATE 500 MG TAB.CHEW PO SCH (08:39)
[2018-11-02] MEDS: FERROUS SULFATE 325 MG TABLET PO SCH (08:39)
[2018-11-02] MEDS: DOXYCYCLINE 100MG TABLET PO SCH (08:39)
[2018-11-02] MEDS ORDERED: GUAI200T3 PO (10:46)
[2018-11-02] MEDS ORDERED: LOPE2CAP PO (10:46)
[2018-11-02] MEDS ORDERED: AMOX1TAB12 PO (10:46)
[2018-11-02] MEDS ORDERED: LEVO25TA2 PO (10:46)
[2018-11-02] MEDS ORDERED: DOXY100T PO (10:46)
[2018-11-02 13:16] VITALS: BP 160/85
[2018-11-02 13:39] VITALS: BP 127/69
== END 2018-11-02 14:25 | DRG 871 ==
LOC: ED 13:15 → EDIP 13:16 → ED 13:17 → 4EST 21:12
PROVIDERS: ADMIT Internal Medicine; ATTEND Internal Medicine
PROC: 0T9B70Z Drainage of Bladder with Drainage Device, Via Natural or Artificial Opening (ICD-10-PCS; principal; 2018-10-27)
PROC: 0DJ08ZZ Inspection of Upper Intestinal Tract, Via Natural or Artificial Opening Endoscopic (ICD-10-PCS; 2018-10-28)
DX: A41.9 Sepsis, unspecified organism (principal); J18.9 Pneumonia, unspecified organism; J96.01 Acute respiratory failure with hypoxia; G93.41 Metabolic encephalopathy; I85.11 Secondary esophageal varices with bleeding; K29.61 Other gastritis with bleeding; E44.0 Moderate protein-calorie malnutrition; E87.0 Hyperosmolality and hypernatremia; L03.116 Cellulitis of left lower limb; K76.6 Portal hypertension; N17.9 Acute kidney failure, unspecified; N39.0 Urinary tract infection, site not specified; B96.20 Unspecified Escherichia coli [E. coli] as the cause of diseases classified elsewhere; D64.9 Anemia, unspecified; E03.9 Hypothyroidism, unspecified; Z68.34 Body mass index [BMI] 34.0-34.9, adult; Z88.5 Allergy status to narcotic agent; F03.90 Unspecified dementia, unspecified severity, without behavioral disturbance, psychotic disturbance, mood disturbance, and anxiety; G89.29 Other chronic pain; M25.551 Pain in right hip; I12.9 Hypertensive chronic kidney disease with stage 1 through stage 4 chronic kidney disease, or unspecified chronic kidney disease; K21.9 Gastro-esophageal reflux disease without esophagitis; M81.0 Age-related osteoporosis without current pathological fracture; N18.3 Chronic kidney disease, stage 3 (moderate); R32 Unspecified urinary incontinence; K74.60 Unspecified cirrhosis of liver; R65.20 Severe sepsis without septic shock; Z66 Do not resuscitate; Z96.641 Presence of right artificial hip joint; Z98.1 Arthrodesis status; K44.9 Diaphragmatic hernia without obstruction or gangrene; K31.819 Angiodysplasia of stomach and duodenum without bleeding
CPT/HCPCS: 36415; 71045; 71250; 74176; 80048; 80053; 81001; 83605; 84145; 84439; 84443; 84481; 85014; 85018; 85025; 85610; 85730; 86850; 86900; 87040; 87077; 87086; 87186; 87324; 87338; 93005; 96365; 99292; G0378; J0456; J0696; J1644; J2354; J2704; J3370; J7060; C9113; J2270; J7030; J7040; J7050

== ENCOUNTER → 2018-11-30 | Outpatient (CLI) | payer MEDICARE, OTHER ==
[~2018-11-30] MED LIST changes: +AMOX1TAB12 PO; +DOXY100T PO; +FERR-46 PO; +GUAI200T3 PO; +LEVO25TA2 PO; +LOPE2CAP PO; +POTA10TA11 PO
== END | disposition home or self-care (01) ==
LOC: CFH 11:58
PROVIDERS: ATTEND Family Medicine
DX: R06.02 Shortness of breath (principal); R06.09 Other forms of dyspnea; M48.54XA Collapsed vertebra, not elsewhere classified, thoracic region, initial encounter for fracture; M41.84 Other forms of scoliosis, thoracic region; M85.88 Other specified disorders of bone density and structure, other site
CPT/HCPCS: 71046